=== PATIENT | male | born 1935 | race Caucasian/White ===

== ENCOUNTER → 2018-02-18 13:33 | Outpatient (CLI) | payer OTHER, SELFPAY ==
[2018-02-18 14:17] LABS: Hematocrit 45.7 % (41-53); Hemoglobin 15.2 g/dL (13.5-17.5); Mean Corpuscular HGB Conc 33.1 % (30-36); Mean Corpuscular Hemoglobin 31.3 PG (26-34); Mean Corpuscular Volume 94.6 fL (80-100); Platelet Count 217 X10^3/uL (150-400); Red Blood Cell Count 4.84 X10^6/uL (4.5-5.9); Red Cell Distribution Width 14.8 % (11.6-14.8); White Blood Cell Count 6.2 X10^3/uL (4.5-11.0)
[2018-02-18 14:52] LABS: Alanine Aminotransferase 29 IU/L (21-72); Albumin 4.1 g/dL (3.5-5.0); Albumin Globulin Ratio 1.4 (1.0-2.8); Alkaline Phosphatase 61 U/L (38-126); Aspartate Aminotransferase 28 IU/L (17-59); BUN Creatinine Ratio 14.5 (6-22); Bilirubin Total 0.5 mg/dL (0.2-1.3); Blood Urea Nitrogen 16 mg/dL (9-20); Carbon Dioxide 33 mmol/L (22-32); Chloride 99 mmol/L (98-107); Estimated Glomerular Filt Rate > 60.0 mL/min (>60); Globulin 2.9 g/dL (1.7-4.1); Glucose 93 mg/dL (80-110); HEMOLYSIS < 15 (0-50); Potassium 3.4 mmol/L (3.4-5.1); Sodium 144 mmol/L (137-145)
[2018-02-18 14:56] LABS: Hemoglobin A1C% w Est Avg Glu 6.1 % (4.0-6.0)
[2018-02-18 15:22] LABS: Prostate Specific Antigen Scrn 6.88 ng/mL (0.1-4.0)
[2018-02-18 18:20] LABS: Vitamin D 25 Hydroxy (D3) 19.8 ng/mL (30.0-100.0)
== END ==
PROVIDERS: PCP Student in an Organized Health Care Education/Training Program; Visit Provider Student in an Organized Health Care Education/Training Program
DX: Z00.00 Encounter for general adult medical examination without abnormal findings (principal); R97.20 Elevated prostate specific antigen [PSA]; E66.9 Obesity, unspecified
CPT/HCPCS: 36415; 80053; 82306; 83036; 85027; G0103

== ENCOUNTER → 2018-12-14 14:33 | Outpatient (CLI) | payer MEDICARE, SELFPAY ==
[2018-12-14 16:52] LABS: Vitamin D 25 Hydroxy (D3) 31.2 ng/mL (30.0-100.0)
== END ==
PROVIDERS: PCP Student in an Organized Health Care Education/Training Program; Visit Provider Student in an Organized Health Care Education/Training Program
DX: E55.9 Vitamin D deficiency, unspecified (principal); R97.20 Elevated prostate specific antigen [PSA]
CPT/HCPCS: 36415; 82306; 84153

== ENCOUNTER → 2019-02-23 13:22 | Outpatient (CLI) | payer MEDICARE, SELFPAY ==
[2019-02-23 13:53] LABS: Hemoglobin 14.9 g/dL (13.5-17.5); Mean Corpuscular Hemoglobin 31.7 PG (26-34); Mean Corpuscular Volume 95.9 fL (80-100); Platelet Count 216 X10^3/uL (150-400); Red Blood Cell Count 4.69 X10^6/uL (4.5-5.9); Red Cell Distribution Width 15.1 % (11.6-14.8); White Blood Cell Count 6.9 X10^3/uL (4.5-11.0)
[2019-02-23 13:58] LABS: Hemoglobin A1C% w Est Avg Glu 5.6 % (4.0-6.0)
[2019-02-23 14:11] LABS: Blood Urea Nitrogen 18 mg/dL (9-20); Calcium 9.6 mg/dL (8.4-10.2); Carbon Dioxide 28 mmol/L (22-32); Chloride 101 mmol/L (98-107); Estimated Glomerular Filt Rate > 60.0 mL/min (>60); Glucose 122 mg/dL (80-110); HEMOLYSIS < 15 (0-50); Potassium 3.9 mmol/L (3.4-5.1); Sodium 138 mmol/L (137-145)
== END ==
PROVIDERS: PCP Student in an Organized Health Care Education/Training Program; Visit Provider Student in an Organized Health Care Education/Training Program
DX: I10 Essential (primary) hypertension (principal); R97.20 Elevated prostate specific antigen [PSA]; Z79.899 Other long term (current) drug therapy; E11.9 Type 2 diabetes mellitus without complications
CPT/HCPCS: 36415; 80048; 83036; 85027

== ENCOUNTER → 2020-03-30 13:48 | Outpatient (CLI) | payer MEDICARE, SELFPAY ==
[2020-03-30 14:42] LABS: BUN Creatinine Ratio 17.9 (6-22); Blood Urea Nitrogen 22 mg/dL (9-20); Calcium 8.8 mg/dL (8.4-10.2); Carbon Dioxide 31 mmol/L (22-32); Chloride 103 mmol/L (98-107); Estimated Glomerular Filt Rate 56.2 mL/min (>60); Glucose 129 mg/dL (80-110); HEMOLYSIS < 15 (0-50); Sodium 138 mmol/L (137-145)
[2020-03-30 14:51] LABS: Hemoglobin A1C% w Est Avg Glu 6.5 % (4.0-6.0)
[2020-03-30 15:12] LABS: Prostate Specific Antigen 7.74 ng/mL (0.10-4.00)
== END ==
PROVIDERS: PCP Student in an Organized Health Care Education/Training Program; Referring Provider Student in an Organized Health Care Education/Training Program; Visit Provider Student in an Organized Health Care Education/Training Program
DX: R97.20 Elevated prostate specific antigen [PSA] (principal); R73.9 Hyperglycemia, unspecified; I10 Essential (primary) hypertension; Z79.899 Other long term (current) drug therapy
CPT/HCPCS: 36415; 80048; 83036; 84153

== ENCOUNTER → 2020-04-06 15:00 | Outpatient (CLI) | payer MEDICARE, SELFPAY ==
[2020-04-06 16:15] LABS: Creatinine Urine Random 92.4 mg/dL
[2020-04-06 16:20] LABS: Microalbumin Urine Random < 0.6 mg/dL (0-1.6)
== END ==
PROVIDERS: PCP Student in an Organized Health Care Education/Training Program; Referring Provider Student in an Organized Health Care Education/Training Program; Visit Provider Student in an Organized Health Care Education/Training Program
DX: E11.9 Type 2 diabetes mellitus without complications (principal)
CPT/HCPCS: 82043; 82570

== ENCOUNTER → 2020-09-19 14:13 | Outpatient (CLI) | payer MEDICARE, SELFPAY ==
[2020-09-19 15:22] LABS: INR 2.4 (0.9-1.3); Prothrombin Time 28.2 SECONDS (10.1-12.7)
[2020-09-19 15:25] LABS: Hemoglobin A1C% w Est Avg Glu 6.2 % (4.0-6.0)
[2020-09-19 16:09] LABS: Prostate Specific Antigen 7.28 ng/mL (0.10-4.00)
== END ==
PROVIDERS: PCP Student in an Organized Health Care Education/Training Program; Referring Provider Student in an Organized Health Care Education/Training Program; Visit Provider Student in an Organized Health Care Education/Training Program
DX: I48.0 Paroxysmal atrial fibrillation (principal); E11.9 Type 2 diabetes mellitus without complications; R97.20 Elevated prostate specific antigen [PSA]; Z79.01 Long term (current) use of anticoagulants
CPT/HCPCS: 36415; 83036; 84153; 85610

== ENCOUNTER → 2020-12-16 17:01 | Outpatient (CLI) | payer MEDICARE, SELFPAY ==
[2020-12-16 17:38] LABS: COVID19 -Nasal RAPID Negative (Negative)
== END ==
PROVIDERS: PCP Student in an Organized Health Care Education/Training Program; Visit Provider Student in an Organized Health Care Education/Training Program
DX: Z20.822 Contact with and (suspected) exposure to COVID-19 (principal); Z01.812 Encounter for preprocedural laboratory examination
CPT/HCPCS: 87635

== ENCOUNTER → 2020-12-18 09:04 | Outpatient (CLI) | payer MEDICARE, SELFPAY ==
--- NOTE | 2020-12-18 | DI.NM.S_ITS ---
PROCEDURE: NM BRANDON PERF SPECT R&S PHARM Rest and pharmacological stress myocardial perfusion SPECT with gated imaging and ejection fraction RADIOPHARMACEUTICAL: 14.4 mCi Tc-99m tetrafosmin IV at rest and 25.2 mCi Tc-99m tetrafosmin IV at peak effect of pharmacological stress. [id number] was performed. INDICATIONS: Unspecified atrial flutter TECHNIQUE: Radiopharmaceutical was injected at peak stress test, and also at rest. SPECT images were obtained. SPECT myocardial perfusion images were displayed in short axis, horizontal long axis, and vertical long axis views. Gated images were reviewed using [employer] software. COMPARISON: None. CARDIAC STRESS: A pharmacologic stress test was performed under the supervision of an attending staff, using an infusion of lexiscan 0.4mg IV X1. Hemodynamic data: There is normal blood pressure and heart rate response to pharmacologic stress. Symptoms: The patient denied anginal chest pain. Aminophylline: none EKG: Resting ECG shows sinus rhythm with ventricular pacing. ECG non-diagnostic with lexiscan due to baseline ventricular pacing. FINDINGS: Raw data: There is good myocardial uptake of radiotracer. No significant motion artifacts. Savn-ev-isqgy ratio is 0.32 (normal is less than 0.38 for tetrafosmin tracer). Left ventricle function: Gated images demonstrate normal left ventricular wall thickening. No segmental wall motion abnormalities. No transient ischemic dilation; TID is 1.05 (normal less than 1.3). Left ventricle resting end diastolic volume is 115 mL. Left ventricle stress ejection fraction is 72%; normal range is above 45%. Myocardial perfusion: There is a predominantly fixed inferior wall defect that improves significantly with prone imaging, suggesting artifact but old non-transmural infarction can't be definitively excluded. IMPRESSION: Low risk, probably normal pharmaceutical nuclear stress test 1) No perfusion evidence of ischemia. There is a predominantly fixed inferior wall defect that improves significantly with prone imaging, suggesting artifact but old non-transmural infarction can't be definitively excluded. 2) Normal left ventricular size, wall motion, and systolic function (EF post stress 72%). 3) ECG non-diagnostic due to ventricular pacing. 4) No angina during the study. 5) No prior nuclear stress test available for comparison. Dictated by: Yuliya Tong MD on 12/18/2020 at 16:37 Approved by: Yuliya Tong MD on 12/18/2020 at 16:41
--- NOTE | 2020-12-18 | DI.ECHO.S_ITS ---
[facility] +---------+ : : [address] [place] : : : : [id number] : : : : Phone: [phone] Echocardiogram Report + + :Name: FITO LAN Study Date: 12/18/2020 Height: 70 in : :[facility] : Weight: 215 lb : : Gender: Male BSA: 2.2 m2 : :: 1935 Age: 85 yrs BP: 155/72 mmHg: :Reason For Study: Arrhythmia : :Ordering Physician: Refugio : :Francesco De Luna Performed By: Carlton Maxwell : :Referring: REFUGIO DE LUNA : + + Interpretation Summary The patient has a paced rhythm. Previously sinus. The left ventricle is normal in size. There is mild-moderate concentric left ventricular hypertrophy. Worsening LV thickness from the previous study. The ejection fraction is estimated to be 45-50%. Compared to the prior exam, the left ventricular function is reduced. There is apical hypokinesis. Compared to the prior exam, the apical wall motion abnormality has increased in severity. MV E/A: 0.74 Med Peak E' Osmin: 6.6 cm/sec E/E' med: 9.4 The right ventricle is normal in size and function. There is a pacemaker lead in the right ventricle. In comparison to previous study, pacemaker lead is new. No significant valvular pathology seen. Mild atherosclerotic plaque(s) in the aortic arch. The IVC is of normal diameter and collapses greater than 50% with a sniff. This suggests a low right atrial pressure of 3 mm Hg. Procedure: A two-dimensional transthoracic echocardiogram with color flow and Doppler was performed. The study quality was technically adequate. Comparison is made with the echocardiogram of 03/25/2014. The patient has a paced rhythm. Left Ventricle: The left ventricle is normal in size. There is mild-moderate concentric left ventricular hypertrophy. There is no thrombus. The ejection fraction is estimated to be 45-50%. Compared to the prior exam, the left ventricular function is reduced. There is apical hypokinesis. Compared to the prior exam, the apical wall motion abnormality has increased in severity. MV E/A: 0.74 Med Peak E' Osmin: 6.6 cm/sec E/E' med: 9.4. Right Ventricle: The right ventricle is normal in size and function. There is a pacemaker lead in the right ventricle. Atria: Both atria are normal in size. The left atrium has mildly decreased in size since the prior echo exam. There is no Doppler evidence for an interatrial shunt. Mitral Valve: The mitral valve is normal in structure and function. There is trace mitral regurgitation. Aortic Valve: The aortic valve is normal in structure and function. The aortic valve is trileaflet. There is no aortic valve stenosis. There is trace aortic regurgitation. Tricuspid Valve: The tricuspid valve is normal in structure and function. Pulmonary artery pressures cannot be estimated because of the lack of a measurable TR jet velocity but the IVC suggests a CVP of around 3 mmHg. There is trace tricuspid regurgitation. Pulmonic Valve: The pulmonic valve is normal in structure and function. There is a trace or physiologic amount of pulmonic regurgitation. Great Vessels: The aortic root is normal size. The dimensions of the ascending aorta are normal. Mild atherosclerotic plaque(s) in the aortic arch. The IVC is of normal diameter and collapses greater than 50% with a sniff. This suggests a low right atrial pressure of 3 mm Hg. Pericardium/ Pleura There is a trivial pericardial effusion noted. There are no echocardiographic indications of cardiac tamponade. There is no pleural effusion. MMode/2D Measurements & Calculations LVIDd: 4.1 cm LVOT diam: 2.2 cm LVIDs: 3.0 cm Ao root diam: 3.3 cm FS: 26.8 % asc Aorta Diam: 3.4 cm IVSd: 1.4 cm LVPWd: 1.3 cm LV batres. diameter/BSA (cm/m^2): 1.9 LV sys. diameter/BSA (cm/m^2): 1.4 LA dimension: 3.6 cm RA long axis: 5.7 cm LA A2 area: 13.1 cm2 LA A4 area: 15.8 cm2 LA length (vol): 4.7 cm LA vol: 37.7 ml LA vol index: 17.5 ml/m2 LVLs ap4: 7.9 cm LVLd ap2: 7.7 cm LVLs ap2: 7.2 cm TAPSE_phl: 2.2 cm Doppler Measurements & Calculations Ao V2 max: 106.0 cm/sec LVOT Max Osmin: 80.3 cm/sec Ao V2 mean: 83.5 cm/sec LV V1 max P.6 mmHg Ao max P.0 mmHg LV V1 VTI: 18.6 cm Ao mean P.0 mmHg MIREYA(I,D): 2.6 cm2 Ao V2 VTI: 27.2 cm MIREYA(V,D): 2.9 cm2 sev ratio: 0.68 MIREYA indexed to BSA (cm^2/m^2): 1.2 MV E max osmin: 61.7 cm/sec PA V2 max: 112.0 cm/sec MV A max osmin: 83.1 cm/sec PA V2 mean: 78.8 cm/sec MV E/A: 0.74 PA mean P.0 mmHg Med Peak E' Osmin: 6.6 cm/sec PA pr(Accel): 36.2 mmHg E/E' med: 9.4 Lat Peak E' Osmin: 7.5 cm/sec E/E' lat: 8.3 E/e' average: 8.8 MV dec time: 0.33 sec SV(LVOT): 70.7 ml AV VR_phl: 0.76 MIREYA(VTI)/BSA_phl: 1.2 MV P1/2t-pr_phl: 96.0 msec Reading Physician:12:43 PM
== END ==
PROVIDERS: PCP Student in an Organized Health Care Education/Training Program; Referring Provider Internal Medicine Cardiovascular Disease; Visit Provider Internal Medicine Cardiovascular Disease
DX: I48.92 Unspecified atrial flutter (principal); I49.9 Cardiac arrhythmia, unspecified; I70.0 Atherosclerosis of aorta; Z95.0 Presence of cardiac pacemaker
CPT/HCPCS: 78452; 93017; 93306; A9502; J2785

== ENCOUNTER → 2020-12-21 08:36 | Outpatient (CLI) | payer MEDICARE, SELFPAY ==
[2020-12-21 10:03] LABS: Add Manual Diff / Slide Review NO; Basophils Absolute Auto 0 /uL (0-100); Basophils Percent Auto 0.9 % (0-2); Eosinophils Absolute Auto 200 /uL (0-450); Eosinophils Percent Auto 3.8 % (2-4); Hematocrit 43.9 % (41-53); Hemoglobin 14.6 g/dL (13.5-17.5); Lymphocytes Absolute Auto 1700 /uL (1100-4500); Lymphocytes Percent Auto 32.5 % (25-40); Mean Corpuscular HGB Conc 33.3 % (30-36); Mean Corpuscular Hemoglobin 31.7 PG (26-34); Mean Corpuscular Volume 95.4 fL (80-100); Monocytes Absolute Auto 600 /uL (0-900); Monocytes Percent Auto 11.1 % (3-14); Neutrophils Absolute Auto 2800 /uL (1500-7000); Neutrophils Percent Auto 51.7 % (50-75); Platelet Count 222 X10^3/uL (150-400); Red Cell Distribution Width 15.1 % (11.6-14.8); White Blood Cell Count 5.3 X10^3/uL (4.5-11.0)
[2020-12-21 10:42] LABS: BUN Creatinine Ratio 19.7 (6-22); Blood Urea Nitrogen 25 mg/dL (9-20); Calcium 9.1 mg/dL (8.4-10.2); Carbon Dioxide 25 mmol/L (22-32); Chloride 104 mmol/L (98-107); Cholesterol 160 mg/dL (140-199); Glucose 111 mg/dL (80-110); HDL Cholesterol 42 mg/dL (40-60); HEMOLYSIS < 15 (0-50); LDL Cholesterol Calculated 87 mg/dL (<100); Potassium 3.6 mmol/L (3.4-5.1); Sodium 138 mmol/L (137-145); Triglycerides 155 mg/dL (35-150)
== END ==
PROVIDERS: PCP Student in an Organized Health Care Education/Training Program; Referring Provider Internal Medicine Interventional Cardiology; Visit Provider Internal Medicine Interventional Cardiology
DX: E78.5 Hyperlipidemia, unspecified (principal); I65.23 Occlusion and stenosis of bilateral carotid arteries; I48.92 Unspecified atrial flutter
CPT/HCPCS: 36415; 80048; 80061; 85025

== ENCOUNTER → 2021-05-01 14:54 | Outpatient (CLI) | payer MEDICARE, SELFPAY ==
[2021-05-01 16:14] LABS: BUN Creatinine Ratio 27.5 (6-22); Blood Urea Nitrogen 28 mg/dL (9-20); Carbon Dioxide 28 mmol/L (22-32); Chloride 103 mmol/L (98-107); Estimated Glomerular Filt Rate > 60.0 mL/min (>60); Glucose 104 mg/dL (80-110); Magnesium 1.9 mg/dL (1.6-2.3); Sodium 139 mmol/L (137-145)
[2021-05-01 16:19] LABS: HEMOLYSIS 92 (0-50); Potassium 4.3 mmol/L (3.4-5.1)
== END ==
PROVIDERS: PCP Student in an Organized Health Care Education/Training Program; Referring Provider Student in an Organized Health Care Education/Training Program; Visit Provider Student in an Organized Health Care Education/Training Program
DX: E11.9 Type 2 diabetes mellitus without complications (principal); R25.2 Cramp and spasm
CPT/HCPCS: 36415; 80048; 83036; 83735

== ENCOUNTER → 2021-05-10 11:55 | Outpatient (CLI) | payer MEDICARE, SELFPAY ==
[2021-05-10 13:29] LABS: INR 2.1 (0.9-1.3); Prothrombin Time 24.2 SECONDS (10.1-12.7)
== END ==
PROVIDERS: PCP Student in an Organized Health Care Education/Training Program; Referring Provider Student in an Organized Health Care Education/Training Program; Visit Provider Student in an Organized Health Care Education/Training Program
DX: Z79.01 Long term (current) use of anticoagulants (principal)
CPT/HCPCS: 36415; 85610

== ENCOUNTER → 2021-11-07 11:49 | Outpatient (CLI) | payer MEDICARE, SELFPAY ==
[2021-11-07 13:25] LABS: BUN Creatinine Ratio 15.4 (6-22); Blood Urea Nitrogen 14 mg/dL (9-20); Calcium 8.3 mg/dL (8.4-10.2); Carbon Dioxide 25 mmol/L (22-32); Chloride 106 mmol/L (98-107); Estimated Glomerular Filt Rate > 60 mL/min (>60); Glucose 105 mg/dL (80-110); HEMOLYSIS < 15 (0-50); Potassium 4.1 mmol/L (3.4-5.1); Sodium 139 mmol/L (137-145)
[2021-11-07 13:41] LABS: Hemoglobin A1C% w Est Avg Glu 6.2 % (4.0-6.0)
[2021-11-07 16:19] LABS: Creatinine Urine Random 54.3 mg/dL
[2021-11-07 16:25] LABS: Microalbumin Urine Random 0.6 mg/dL (0-1.6)
== END ==
PROVIDERS: PCP Student in an Organized Health Care Education/Training Program; Referring Provider Student in an Organized Health Care Education/Training Program; Visit Provider Student in an Organized Health Care Education/Training Program
DX: E11.9 Type 2 diabetes mellitus without complications (principal)
CPT/HCPCS: 36415; 80048; 82043; 82570; 83036

== ENCOUNTER → 2022-02-22 16:07 | Outpatient (CLI) | payer MEDICARE, SELFPAY ==
[2022-02-22 17:02] LABS: Cholesterol 144 mg/dL (140-199); HDL Cholesterol 42 mg/dL (40-60); LDL Cholesterol Calculated 75 mg/dL (<100); Triglycerides 135 mg/dL (35-150)
== END ==
PROVIDERS: PCP Student in an Organized Health Care Education/Training Program; Referring Provider Internal Medicine Interventional Cardiology; Visit Provider Internal Medicine Interventional Cardiology
DX: E78.5 Hyperlipidemia, unspecified (principal)
CPT/HCPCS: 36415; 80061

== ENCOUNTER → 2022-04-22 11:27 | Outpatient (CLI) | payer MEDICARE, SELFPAY ==
[2022-04-22 13:36] LABS: BUN Creatinine Ratio 14.8 (6-22); Blood Urea Nitrogen 16 mg/dL (9-20); Estimated Glomerular Filt Rate > 60 mL/min (>60); Uric Acid 4.7 mg/dL (3.5-8.5)
[2022-04-22 19:55] LABS: Hep C Virus Ab w/Reflex Quant NEGATIVE s/c (NEGATIVE)
[2022-04-23 17:57] LABS: Hemoglobin A1C% w Est Avg Glu 6.3 % (4.0-6.0)
== END ==
PROVIDERS: PCP Student in an Organized Health Care Education/Training Program; Referring Provider Student in an Organized Health Care Education/Training Program; Visit Provider Student in an Organized Health Care Education/Training Program
DX: E11.9 Type 2 diabetes mellitus without complications (principal); M10.9 Gout, unspecified; R09.89 Other specified symptoms and signs involving the circulatory and respiratory systems; Z11.59 Encounter for screening for other viral diseases
CPT/HCPCS: 36415; 82565; 83036; 84520; 84550; 86803

== ENCOUNTER → 2022-09-20 10:43 | Outpatient (CLI) | payer MEDICARE, SELFPAY ==
[2022-09-20 12:44] LABS: INR 4.6 (0.9-1.3); Prothrombin Time 53.3 SECONDS (10.1-12.7)
== END ==
PROVIDERS: Internal Medicine; PCP Student in an Organized Health Care Education/Training Program; Referring Provider Student in an Organized Health Care Education/Training Program; Visit Provider Student in an Organized Health Care Education/Training Program
DX: I82.409 Acute embolism and thrombosis of unspecified deep veins of unspecified lower extremity (principal)
CPT/HCPCS: 36415; 85610

== ENCOUNTER → 2022-11-04 13:51 | Outpatient (CLI) | payer MEDICARE, SELFPAY ==
[2022-11-04 16:53] LABS: BUN Creatinine Ratio 14.9 (6-22); Blood Urea Nitrogen 18 mg/dL (9-20); Calcium 8.8 mg/dL (8.4-10.2); Carbon Dioxide 31 mmol/L (22-32); Chloride 101 mmol/L (98-107); Estimated Glomerular Filt Rate 58 mL/min (>60); Glucose 89 mg/dL (80-110); HEMOLYSIS < 15 (0-50); Potassium 3.9 mmol/L (3.4-5.1); Sodium 138 mmol/L (137-145)
[2022-11-04 18:15] LABS: Creatinine Urine Random 76.3 mg/dL; Microalbumi Creatinin Ratio Ur 13.1 ug/mg CR (<30)
[2022-11-05 05:12] LABS: Labcorp Hemoglobin (Hb) A1c 5.7 % (4.8-5.6)
== END ==
PROVIDERS: PCP Student in an Organized Health Care Education/Training Program; Referring Provider Student in an Organized Health Care Education/Training Program; Visit Provider Student in an Organized Health Care Education/Training Program
DX: E11.9 Type 2 diabetes mellitus without complications (principal); R09.89 Other specified symptoms and signs involving the circulatory and respiratory systems
CPT/HCPCS: 36415; 80048; 82043; 82570; 83036

== ENCOUNTER → 2023-03-04 08:29 | Outpatient (CLI) | payer MEDICARE, SELFPAY ==
[2023-03-04 10:27] LABS: BUN Creatinine Ratio 16.8 (6-22); Blood Urea Nitrogen 18 mg/dL (9-20); Calcium 9.5 mg/dL (8.4-10.2); Carbon Dioxide 31 mmol/L (22-32); Chloride 103 mmol/L (98-107); Cholesterol 148 mg/dL (140-199); Estimated Glomerular Filt Rate > 60 mL/min (>60); Glucose 108 mg/dL (80-110); HDL Cholesterol 43 mg/dL (40-60); HEMOLYSIS < 15 (0-50); LDL Cholesterol Calculated 79 mg/dL (<100); Potassium 3.7 mmol/L (3.4-5.1); Sodium 138 mmol/L (137-145); Triglycerides 129 mg/dL (35-150)
== END ==
PROVIDERS: PCP Student in an Organized Health Care Education/Training Program; Referring Provider Internal Medicine Interventional Cardiology; Visit Provider Internal Medicine Interventional Cardiology
DX: E78.5 Hyperlipidemia, unspecified (principal); I77.1 Stricture of artery
CPT/HCPCS: 36415; 80048; 80061

== ENCOUNTER → 2023-09-02 11:53 | Outpatient (CLI) | payer MEDICARE, SELFPAY ==
[2023-09-02 13:51] LABS: Add Manual Diff / Slide Review NO; Basophils Absolute Auto 100 /uL (0-100); Basophils Percent Auto 1.1 % (0-2); Eosinophils Absolute Auto 200 /uL (0-450); Eosinophils Percent Auto 3.8 % (2-4); Hematocrit 44.2 % (41-53); Hemoglobin 14.8 g/dL (13.5-17.5); Lymphocytes Absolute Auto 1000 /uL (1100-4500); Lymphocytes Percent Auto 15.6 % (25-40); Mean Corpuscular HGB Conc 33.4 % (30-36); Mean Corpuscular Hemoglobin 31.6 PG (26-34); Mean Corpuscular Volume 94.6 fL (80-100); Monocytes Absolute Auto 600 /uL (0-900); Monocytes Percent Auto 9.3 % (3-14); Neutrophils Absolute Auto 4400 /uL (1500-7000); Neutrophils Percent Auto 70.2 % (50-75); Platelet Count 194 X10^3/uL (150-400); Red Blood Cell Count 4.67 X10^6/uL (4.5-5.9); Red Cell Distribution Width 15.7 % (11.6-14.8); White Blood Cell Count 6.3 X10^3/uL (4.5-11.0)
[2023-09-02 14:18] LABS: Alanine Aminotransferase 19 IU/L (<50); Albumin 3.8 g/dL (3.5-5.0); Albumin Globulin Ratio 1.6 (1.0-2.8); Alkaline Phosphatase 72 U/L (38-126); Aspartate Aminotransferase 29 IU/L (17-59); BUN Creatinine Ratio 15.3 (6-22); Bilirubin Total 0.8 mg/dL (0.2-1.3); Blood Urea Nitrogen 19 mg/dL (9-20); Calcium 9.1 mg/dL (8.4-10.2); Carbon Dioxide 28 mmol/L (22-32); Chloride 107 mmol/L (98-107); Estimated Glomerular Filt Rate 56 mL/min (>60); Globulin 2.4 g/dL (1.7-4.1); Glucose 102 mg/dL (80-110); HEMOLYSIS < 15 (0-50); Potassium 4.6 mmol/L (3.4-5.1); Sodium 139 mmol/L (137-145); Total Protein 6.2 g/dL (6.3-8.2); Uric Acid 4.9 mg/dL (3.5-8.5)
[2023-09-02 14:23] LABS: Hemoglobin A1C% w Est Avg Glu 6.1 % (4.0-6.0)
[2023-09-02 14:45] LABS: Prostate Specific Antigen Scrn 9.35 ng/mL (0.1-4.0)
== END ==
PROVIDERS: PCP Family Medicine; Referring Provider Family Medicine; Visit Provider Family Medicine
DX: Z12.5 Encounter for screening for malignant neoplasm of prostate (principal); I48.91 Unspecified atrial fibrillation; E11.9 Type 2 diabetes mellitus without complications; M10.9 Gout, unspecified
CPT/HCPCS: 36415; 80053; 83036; 84550; 85025; G0103

== ENCOUNTER → 2023-09-04 12:58 | Outpatient (CLI) | payer MEDICARE, SELFPAY ==
[2023-09-06 07:36] LABS: PSA Free % 18.1 % (.); PSA, Total 8.9 ng/mL (0.0-4.0)
== END ==
PROVIDERS: PCP Family Medicine; Referring Provider Family Medicine; Visit Provider Family Medicine
DX: Z85.46 Personal history of malignant neoplasm of prostate (principal)
CPT/HCPCS: 36415; 84153; 84154

== ENCOUNTER → 2023-11-28 14:13 | Outpatient (CLI) | payer MEDICARE, SELFPAY ==
[2023-11-28 15:13] LABS: Add Manual Diff / Slide Review NO; Basophils Absolute Auto 100 /uL (0-100); Eosinophils Absolute Auto 200 /uL (0-450); Eosinophils Percent Auto 3.3 % (2-4); Hematocrit 44.6 % (41-53); Hemoglobin 14.9 g/dL (13.5-17.5); Lymphocytes Absolute Auto 1200 /uL (1100-4500); Lymphocytes Percent Auto 18.4 % (25-40); Mean Corpuscular HGB Conc 33.4 % (30-36); Mean Corpuscular Hemoglobin 31.4 PG (26-34); Mean Corpuscular Volume 93.8 fL (80-100); Monocytes Absolute Auto 500 /uL (0-900); Monocytes Percent Auto 8.2 % (3-14); Neutrophils Absolute Auto 4400 /uL (1500-7000); Neutrophils Percent Auto 69.1 % (50-75); Platelet Count 214 X10^3/uL (150-400); Red Blood Cell Count 4.75 X10^6/uL (4.5-5.9); Red Cell Distribution Width 15.4 % (11.6-14.8); White Blood Cell Count 6.4 X10^3/uL (4.5-11.0)
[2023-11-28 15:49] LABS: Alanine Aminotransferase 17 IU/L (<50); Albumin 3.9 g/dL (3.5-5.0); Albumin Globulin Ratio 1.6 (1.0-2.8); Alkaline Phosphatase 66 U/L (38-126); Aspartate Aminotransferase 26 IU/L (17-59); BUN Creatinine Ratio 20.6 (6-22); Bilirubin Total 0.6 mg/dL (0.2-1.3); Blood Urea Nitrogen 22 mg/dL (9-20); Carbon Dioxide 28 mmol/L (22-32); Chloride 106 mmol/L (98-107); Estimated Glomerular Filt Rate > 60 mL/min (>60); Globulin 2.5 g/dL (1.7-4.1); Glucose 102 mg/dL (80-110); HEMOLYSIS < 15 (0-50); Potassium 4.6 mmol/L (3.4-5.1); Sodium 139 mmol/L (137-145); Total Protein 6.4 g/dL (6.3-8.2)
[2023-11-28 15:50] LABS: Hemoglobin A1C% w Est Avg Glu 6.1 % (4.0-6.0)
== END ==
PROVIDERS: PCP Family Medicine; Referring Provider Family Medicine; Visit Provider Family Medicine
DX: E11.9 Type 2 diabetes mellitus without complications (principal); Z85.46 Personal history of malignant neoplasm of prostate; I48.91 Unspecified atrial fibrillation
CPT/HCPCS: 36415; 80053; 83036; 84153; 84154; 85025

== ENCOUNTER → 2023-12-05 09:16 | Outpatient (CLI) | payer MEDICARE, SELFPAY ==
--- NOTE | 2023-12-05 09:16 | DI.ECHO.S_ITS ---
[place] +---------+ Hospital : : [address] : : [place] : : [id number] : : Phone: [phone] Echocardiogram Report + + :Name: FITO LAN Study Date: 12/05/2023 Height: 70.5 in: :[facility] ReadingLocation: Weight: 200 lb : : Gender: Male BSA: 2.1 m2 : :: 1935 Age: 88 yrs BP: 149/79 mmHg: :Reason For Study: EVAL HEART MURMUR : :Ordering Physician: [place] : :GOKUL Performed By: Sulema Martinez : :Referring: GOKUL GOFF : + + Interpretation Summary The ejection fraction is estimated to be 50-55%. Diastolic parameters suggest probable normal left ventricular diastolic function and normal filling pressures. There is mild-moderate concentric left ventricular hypertrophy. The right ventricle is normal in size and function. Pulmonary artery pressures cannot be estimated because of the lack of a measurable TR jet velocity. No siginificant valvular abnormality. Procedure: A two-dimensional transthoracic echocardiogram with color flow and Doppler was performed. The study quality was technically adequate. Comparison is made with the echocardiogram of 12/18/2020. The patient has a paced rhythm. The heart rate ranged between 62-70 bpm during the study. Left Ventricle: There is mild-moderate concentric left ventricular hypertrophy. The left ventricle is normal in size. The ejection fraction is estimated to be 50-55%. There is a mild dyssynchronous contraction pattern due to the paced rhythm. Diastolic parameters suggest probable normal left ventricular diastolic function and normal filling pressures. Right Ventricle: There is a pacemaker lead in the right ventricle. The right ventricle is normal in size and function. Atria: The left atrial size is normal. Right atrial size is normal. There is no Doppler evidence for an interatrial shunt. Mitral Valve: The mitral valve is normal in structure and function. There is trace mitral regurgitation. Aortic Valve: The aortic valve is trileaflet. The aortic valve opens well. There is no aortic valve stenosis. No aortic regurgitation is present. Tricuspid Valve: The tricuspid valve is normal in structure and function. There is trace tricuspid regurgitation. Pulmonary artery pressures cannot be estimated because of the lack of a measurable TR jet velocity. Pulmonic Valve: The pulmonic valve leaflets are thin and pliable; valve motion is normal. There is no pulmonic valvular regurgitation. Great Vessels: The aortic root is normal size. The dimensions of the ascending aorta are normal. The IVC is of normal diameter and collapses greater than 50% with a sniff. This suggests a low right atrial pressure of 3 mm Hg. Pericardium/ Pleura There is no pericardial effusion. There is no pleural effusion. MMode/2D Measurements & Calculations LVIDd: 4.8 cm LVOT diam: 2.2 cm LVIDs: 3.0 cm Ao root diam: 3.7 cm FS: 36.8 % asc Aorta Diam: 3.8 cm EPSS: 1.2 cm Ao Arch Diam (Prox Trans): 2.8 cm IVSd: 1.4 cm LVPWd: 1.1 cm LV batres. diameter/BSA (cm/m^2): 2.3 LV sys. diameter/BSA (cm/m^2): 1.4 LA A2 area: 22.8 cm2 RA long axis: 5.3 cm LA A4 area: 18.5 cm2 RA area: 19.3 cm2 LA length (vol): 6.2 cm RA vol: 59.5 ml LA vol: 58.0 ml RA : 28.3 ml/m2 LA vol index: 27.6 ml/m2 IVC diam: 0.66 cm RVD1 (basal): 3.9 cm RVD2 (mid): 3.3 cm TAPSE: 2.3 cm Doppler Measurements & Calculations Ao V2 max: 136.8 cm/sec LVOT Max Osmin: 97.1 cm/sec Ao V2 mean: 102.6 cm/sec LV V1 max P.8 mmHg Ao max P.5 mmHg LV V1 VTI: 22.3 cm Ao mean P.5 mmHg MIREYA(I,D): 2.8 cm2 Ao V2 VTI: 30.5 cm MIREYA(V,D): 2.7 cm2 sev ratio: 0.73 MIREYA indexed to BSA (cm^2/m^2): 1.3 MV E max osmin: 55.4 cm/sec PA V2 max: 120.4 cm/sec MV A max osmin: 68.1 cm/sec PA V2 mean: 79.4 cm/sec MV E/A: 0.81 PA mean P.8 mmHg Med Peak E' Osmin: 6.5 cm/sec PA pr(Accel): 39.6 mmHg E/E' med: 8.5 Lat Peak E' Osmin: 6.9 cm/sec E/E' lat: 8.0 E/e' average: 8.3 MV dec time: 0.29 sec SV(LVOT): 85.0 ml Reading Physician:PM
== END ==
PROVIDERS: PCP Family Medicine; Referring Provider Family Medicine; Visit Provider Family Medicine
DX: R01.1 Cardiac murmur, unspecified (principal); Z95.0 Presence of cardiac pacemaker
CPT/HCPCS: 93306

== ENCOUNTER 2023-12-23 15:38 | Emergency (ER) | payer MEDICARE, SELFPAY ==
[2023-12-23] VITALS (21 sets, daily range): BP systolic 137–206; BP diastolic 72–155; PULSE 71–73; RESP 9–18; TEMP 36.6; O2SAT 95–98; BMI 28.7
--- NOTE | 2023-12-23 15:46 | DI.RAD.S_ITS ---
PROCEDURE: XR CHEST 1V INDICATIONS: chest pain TECHNIQUE: One view of the chest was acquired. COMPARISON: None. FINDINGS: Surgical changes and devices: Left-sided pacer Lungs and pleura: Lungs are clear. No pleural effusions or pneumothorax. Mediastinum: Mediastinal contours appear normal. Heart size is normal. Bones and chest wall: No suspicious bony lesions. Overlying soft tissues appear unremarkable. IMPRESSION: No acute cardiopulmonary abnormality is seen. Dictated by: Samir Marks M.D. on 12/23/2023 at 16:36 Approved by: Samir Marks M.D. on 12/23/2023 at 16:36
--- NOTE | 2023-12-23 15:49 | EKG_ITS ---
[address] [address] Test Date: 2023-12-23 Pat Name: Gerber Wevaer Department: Room: Gender: Male Medical Director Of Hospice: SARAI : 1935 Requested By: Order Number: [id number] Reading MD: Álvaro Johnson MD Measurements Intervals [place] Rate: 73 P: PA: QRS: -42 QRSD: 194 T: 102 QT: 478 QTc: 526 Interpretive Statements Ventricular-paced rhythm NO PRIOR TRACING Electronically Signed On 12-23-2023 16:51:14 PDT by Álvaro Johnson MD
[2023-12-23 16:06] LABS: Add Manual Diff / Slide Review NO; Basophils Absolute Auto 0 /uL (0-100); Basophils Percent Auto 0.8 % (0-2); Eosinophils Absolute Auto 100 /uL (0-450); Eosinophils Percent Auto 1.9 % (2-4); Hematocrit 45.5 % (41-53); Hemoglobin 15.2 g/dL (13.5-17.5); Lymphocytes Absolute Auto 1100 /uL (1100-4500); Lymphocytes Percent Auto 16.9 % (25-40); Mean Corpuscular HGB Conc 33.4 % (30-36); Mean Corpuscular Hemoglobin 31.3 PG (26-34); Mean Corpuscular Volume 93.7 fL (80-100); Monocytes Absolute Auto 500 /uL (0-900); Monocytes Percent Auto 7.5 % (3-14); Neutrophils Absolute Auto 4800 /uL (1500-7000); Neutrophils Percent Auto 72.9 % (50-75); Platelet Count 203 X10^3/uL (150-400); Red Blood Cell Count 4.85 X10^6/uL (4.5-5.9); Red Cell Distribution Width 15.6 % (11.6-14.8); White Blood Cell Count 6.6 X10^3/uL (4.5-11.0)
[2023-12-23 16:17] LABS: Prothrombin Time 34.7 SECONDS (9.4-12.5)
[2023-12-23 16:19] LABS: PTT Partial Thromboplastin Tim 68 SECONDS (25.1-36.5)
[2023-12-23 16:21] LABS: Alanine Aminotransferase 21 IU/L (<50); Albumin 4.2 g/dL (3.5-5.0); Albumin Globulin Ratio 1.4 (1.0-2.8); Alkaline Phosphatase 67 U/L (38-126); Aspartate Aminotransferase 29 IU/L (17-59); BUN Creatinine Ratio 20.8 (6-22); Bilirubin Total 0.5 mg/dL (0.2-1.3); Blood Urea Nitrogen 22 mg/dL (9-20); Calcium 9.3 mg/dL (8.4-10.2); Carbon Dioxide 29 mmol/L (22-32); Chloride 106 mmol/L (98-107); Creatine Kinase 71 U/L (55-170); Estimated Glomerular Filt Rate > 60 mL/min (>60); Globulin 3.1 g/dL (1.7-4.1); Glucose 110 mg/dL (80-110); HEMOLYSIS < 15 (0-50); Lipase 71 U/L (23-300); Magnesium 2.1 mg/dL (1.6-2.3); Potassium 4.1 mmol/L (3.4-5.1); Sodium 138 mmol/L (137-145); Total Protein 7.3 g/dL (6.3-8.2)
[2023-12-23 16:33] LABS: NT-proBNP (BNP-Adult 18+) 358 pg/mL (<450); Troponin I < 0.012 ng/mL (0.01-0.034)
--- NOTE | 2023-12-23 17:05 | EKG_ITS ---
[address] [address] Test Date: 2023-12-23 Pat Name: Gerber Weaver Department: Room: Gender: Male [employer] Help: KAYA : 1935 Requested By: Order Number: [id number] Reading MD: Álvaro Johnson MD Measurements Intervals [place] Rate: 72 P: 62 DC: QRS: -39 QRSD: 194 T: 86 QT: 488 QTc: 534 Interpretive Statements Ventricular-paced rhythm Electronically Signed On 12-23-2023 17:46:17 PDT by Álvaro Johnson MD
--- NOTE | 2023-12-23 17:59 | ED.DIZZY ---
HPI - Dizziness General Chief Complaint: Syncope Stated Complaint: near syncope episodes Time Seen by Provider: 12/23/23 17:54 Source: patient Mode of arrival: Ambulatory History of Present Illness HPI Narrative: 88-year-old male with history of atrial fibrillation, Mobitz type 2 av block with permanent pacemaker placement presents from the walk-in clinic for 1 week of multiple ?blackout? episodes. Patient states that several times a day he feels his vision blackout. He denies truly losing consciousness during these episodes. He went to the walk-in clinic, and was referred to the emergency department for further evaluation. Related Data Home Medications Medication Instructions Recorded Confirmed aspirin 81 mg tablet,delayed 81 mg PO DAILY 03/31/20 12/23/23 release rosuvastatin 20 mg tablet 20 mg PO DAILY 04/17/22 12/23/23 Previous Rx's Medication Instructions Recorded cholecalciferol (vitamin D3) 25 1,000 unit PO DAILY #30 caps 02/19/18 mcg (1,000 unit) capsule diclofenac sodium 1 % topical gel 2 g topical QID #100 grams 10/18/21 (Voltaren Arthritis Pain) azelastine 137 mcg (0.1 %) nasal 2 spray intranasal BID #200 01/22/22 spray aerosol actuations loratadine 10 mg tablet 10 mg PO DAILY PRN allergic 06/25/22 symptoms #30 tabs allopurinol 300 mg tablet 300 mg PO DAILY #90 tabs 08/08/23 warfarin 6 mg tablet See Rx Instructions PO .COMPLEX 09/02/23 #90 tabs lisinopril 10 1 tab PO DAILY #90 tabs 10/24/23 mg-hydrochlorothiazide 12.5 mg tablet ketoconazole 2 % shampoo 1 applic topical 3XW PRN 12/03/23 dermatitis #120 mL Allergies Allergy/AdvReac Type Severity Reaction Status Date / Time No Known Drug Allergies Allergy Verified 12/23/23 15:46 Patient History Medical History Ganglion cyst of dorsum of right wrist 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) History of prostate cancer Paroxysmal atrial fibrillation Mobitz (type) II atrioventricular block Hearing loss Gout Osteoarthritis Subclavian artery stenosis Peripheral vascular disease Prostate cancer (~10/2009) Seborrheic dermatitis of scalp (11/22/16) Hammer toe of right foot (11/22/16) Pure hypercholesterolemia (11/10/15) Presence of cardiac pacemaker (02/13/15) 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 Mother No problems noted. Social History Smoking Status: Never smoker Smoking Status: Never smoker alcohol intake frequency: a few times a month Substance Use Type: does not use Exam Initial Vital Signs Initial Vital Signs: Vital Signs Temperature 97.8 F 12/23/23 15:40 Pulse Rate 72 12/23/23 15:40 Respiratory Rate 16 12/23/23 15:40 Blood Pressure 137/81 12/23/23 15:40 Pulse Oximetry 98 12/23/23 15:40 Oxygen Delivery Method Room Air 12/23/23 15:40 Const: Awake, alert, no acute distress, nontoxic appearing Cardiac: regular rate, regular rhythm RESP: unlabored, clear bilaterally, no wheezing Skin: Warm, Dry, intact, no rashes Neuro: AO x3, CN II-XII grossly intact, moves all extremities Course Orders Ordered: ED Orders 12/23/23 15:46 XR chest 1V Stat EKG-12 Lead Stat 12/23/23 15:55 Complete Blood Count AUTO DIFF Stat Comprehensive Metabolic Panel Stat Lipase Stat Magnesium Stat NT-proBNP (BNP-Adult 18+) Stat PTT Partial Thromboplastin González Stat Prothrombin Time INR Stat Troponin & CK Cardiac Panel Stat 12/23/23 17:05 EKG-12 Lead Stat Vital Signs Vital signs: Vital Signs - 8 hr 12/23/23 15:40 12/23/23 15:43 12/23/23 15:43 Temperature 97.8 F Pulse Rate 72 73 Respiratory Rate 16 Blood Pressure 137/81 137/81 Pulse Oximetry 98 Oxygen Delivery Method Room Air 12/23/23 16:00 12/23/23 16:00 12/23/23 16:30 Temperature Pulse Rate 72 71 Respiratory Rate 13 10 L Blood Pressure 155/85 H Pulse Oximetry 98 95 Oxygen Delivery Method 12/23/23 16:30 12/23/23 17:00 12/23/23 17:00 Temperature Pulse Rate 72 Respiratory Rate 12 Blood Pressure 152/90 H 153/86 H Pulse Oximetry 98 Oxygen Delivery Method 12/23/23 17:30 12/23/23 17:31 12/23/23 17:31 Temperature Pulse Rate 72 72 Respiratory Rate 11 L Blood Pressure 183/94 H Pulse Oximetry 97 97 Oxygen Delivery Method 12/23/23 17:52 12/23/23 17:52 12/23/23 18:00 Temperature Pulse Rate 72 72 Respiratory Rate 13 9 L Blood Pressure 206/103 H Pulse Oximetry 97 98 Oxygen Delivery Method 12/23/23 18:01 12/23/23 18:01 12/23/23 18:30 Temperature Pulse Rate 72 72 Respiratory Rate 12 11 L Blood Pressure 189/110 H Pulse Oximetry 98 98 Oxygen Delivery Method 12/23/23 18:35 12/23/23 18:35 12/23/23 18:37 Temperature Pulse Rate 72 Respiratory Rate 18 Blood Pressure 155/72 H 171/76 H Pulse Oximetry 98 Oxygen Delivery Method 12/23/23 18:37 12/23/23 19:00 12/23/23 19:00 Temperature Pulse Rate 72 72 Respiratory Rate 14 18 Blood Pressure 187/105 H Pulse Oximetry 97 98 Oxygen Delivery Method 12/23/23 19:30 12/23/23 19:30 12/23/23 20:00 Temperature Pulse Rate 72 72 Respiratory Rate 18 9 L Blood Pressure 195/101 H Pulse Oximetry 97 97 Oxygen Delivery Method 12/23/23 20:01 12/23/23 20:01 12/23/23 20:09 Temperature Pulse Rate 72 Respiratory Rate 12 Blood Pressure 176/155 H 206/91 H Pulse Oximetry 97 Oxygen Delivery Method 12/23/23 20:09 Temperature Pulse Rate 72 Respiratory Rate 15 Blood Pressure 206/91 H Pulse Oximetry 97 Oxygen Delivery Method MDM - Dizziness Differential Diagnosis Differential diagnosis: Likely orthostatic hypotension and other (pacemaker malfunction, vasovagal syncope) Lab Data 12/23/23 15:55 12/23/23 15:55 Labs: Lab Results 12/23/23 Range/Units 15:55 WBC 6.6 (4.5-11.0) X10^3/uL RBC 4.85 (4.5-5.9) X10^6/uL Hgb 15.2 (13.5-17.5) g/dL Hct 45.5 (41-53) % MCV 93.7 (80-100) fL MCH 31.3 (26-34) PG MCHC 33.4 (30-36) % RDW 15.6 H (11.6-14.8) % Plt Count 203 (150-400) X10^3/uL Neut % (Auto) 72.9 (50-75) % Lymph % (Auto) 16.9 L (25-40) % Gosper % (Auto) 7.5 (3-14) % Eos % (Auto) 1.9 L (2-4) % Baso % (Auto) 0.8 (0-2) % Neut # (Auto) 4800 (8885-8870) /uL Lymph # (Auto) 1100 (9194-7506) /uL Gosper # (Auto) 500 (0-900) /uL Eos # (Auto) 100 (0-450) /uL Baso # (Auto) 0 (0-100) /uL PT 34.7 H (9.4-12.5) SECONDS INR 3.0 H (0.9-1.3) APTT 68 H (25.1-36.5) SECONDS Sodium 138 (137-145) mmol/L Potassium 4.1 (3.4-5.1) mmol/L Chloride 106 (98-107) mmol/L Carbon Dioxide 29 (22-32) mmol/L BUN 22 H (9-20) mg/dL Creatinine 1.06 (0.66-1.25) mg/dL Estimated GFR > 60 (>60) mL/min BUN/Creatinine Ratio 20.8 (6-22) Glucose 110 (80-110) mg/dL Calcium 9.3 (8.4-10.2) mg/dL Magnesium 2.1 (1.6-2.3) mg/dL Total Bilirubin 0.5 (0.2-1.3) mg/dL AST 29 (17-59) IU/L ALT 21 (<50) IU/L Alkaline Phosphatase 67 (38-126) U/L Total Creatine Kinase 71 (55-170) U/L Troponin I < 0.012 (0.01-0.034) ng/mL NT-Pro-B Natriuret Pep 358 (<450) pg/mL Total Protein 7.3 (6.3-8.2) g/dL Albumin 4.2 (3.5-5.0) g/dL Globulin 3.1 (1.7-4.1) g/dL Albumin/Globulin Ratio 1.4 (1.0-2.8) Lipase 71 (23-300) U/L ECG Data Interpretation: Atrial sensed ventricular paced rhythm at 72 beats per minute MDM Narrative Medical decision making narrative: Patient presenting for multiple ?blackout? episodes. EKG shows ventricular paced rhythm, however it was captured on cardiac monitoring where several beats were atrial sensed but no ventricular paced was fired. Unable to interrogate pacemaker with our machine and so telephone services sales representative from patient's pacemaker company called to interrogate pacer. Discussed case with device telephone services sales representative. Patient's pacemaker is currently in ?safety mode? and in this situation movement from patient's body can interfere with the sensing from the pacemaker device and registered as heartbeat, causing the ventricular sensing of the wire to not activate. Discussed with Dr. Goldman, who recommended transfer for pacemaker replacement. While awaiting transfer to [facility] patient stated that he wanted to leave and go home. He states that he ?is not 1 for sitting around in hospitals? and does not want to be transferred, stating that he will likely just sit in [facility] for several days with nothing happening. I explained that pacemaker replacement would be based on EP lab availability and I could not say when a replacement [place] available to be performed. I explained that risks of leaving against medical advice would be , permanent disability, injury or accident due to syncope or pacemaker malfunction. Patient states that he just wants to leave and will come back if he has any changes in his condition. patient elected to leave hospital against medical advice. Discharge Plan Departure Patient Disposition: Left Against Medical Advice Clinical Impression: Malfunction of cardiac pacemaker, Left against medical advice Activity Restrictions/Additional Instructions: You have elected to leave the hospital against medical advice while awaiting transfer to [facility]. Your pacemaker is not functioning correctly and you risk , permanent disability, injury, or accident by leaving prior to your transfer. Call your riveter portable machine for follow up appointment, or return to the emergency department for any new or worsening concerns. Prescriptions: No Action cholecalciferol (vitamin D3) 1,000 unit capsule 1,000 unit PO DAILY Qty: 30 2RF aspirin 81 mg tablet,delayed release (DR/EC) 81 mg PO DAILY diclofenac sodium [Voltaren Arthritis Pain] 1 % gel 2 g topical QID Qty: 100 0RF Rx Instructions: apply to single elbow, wrist or hand; for hand includes palm/fingers/back of hand azelastine 137 mcg (0.1 %) aerosol,spray 2 spray Intranasal BID Qty: 200 5RF allopurinol 300 mg tablet 300 mg PO DAILY Qty: 90 1RF lisinopril-hydrochlorothiazide 10-12.5 mg tablet 1 tab PO DAILY Qty: 90 0RF ketoconazole 2 % shampoo 1 applic topical 3XW PRN (Reason: dermatitis) Qty: 120 3RF loratadine 10 mg tablet 10 mg PO DAILY PRN (Reason: allergic symptoms) Qty: 30 0RF warfarin 6 mg tablet See Rx Instructions PO .COMPLEX Qty: 90 3RF Rx Instructions: Start taking 6 mg daily - start 6 mg dose on 09/02/23 rosuvastatin 20 mg tablet 20 mg PO DAILY Referrals: Barrington Tolliver, [Primary Care Provider] - Stand Alone Forms: Patient Portal/API, Against Medical Advice
--- NOTE | 2023-12-23 20:17 | PC.NURSE ---
Pt indicates to this tech that he would like to go home instead of wait for placement at [facility]. This Tech informed Pt that we are waiting for the hospital to call us back this evening to be sent over to for a new pacemaker. Pt states he would still like to leave. Tech informed provider. Provider to speak with Pt
== END 2023-12-23 20:38 | disposition left against medical advice (07) ==
PROVIDERS: Emergency Medicine; Emergency Provider Emergency Medicine; PCP Family Medicine
DX: T82.111A Breakdown (mechanical) of cardiac pulse generator (battery), initial encounter (principal); R07.9 Chest pain, unspecified; Z95.0 Presence of cardiac pacemaker
CPT/HCPCS: 36415; 71045; 80053; 82550; 83690; 83735; 83880; 84484; 85025; 85610; 85730; 93005; 93010; 99283; 99284

== ENCOUNTER → 2025-03-04 07:56 | Outpatient (CLI) | payer MEDICARE, SELFPAY ==
[2025-03-04 09:00] LABS: Add Manual Diff / Slide Review NO; Hematocrit 43.0 % (41-53); Hemoglobin 14.4 g/dL (13.5-17.5); Lymphocytes Absolute Auto 1100 /uL (1100-4500); Mean Corpuscular HGB Conc 33.5 % (30-36); Mean Corpuscular Hemoglobin 30.8 PG (26-34); Mean Corpuscular Volume 91.9 fL (80-100); Platelet Count 193 X10^3/uL (150-400)
[2025-03-04 09:06] LABS: Hemoglobin A1C% w Est Avg Glu 6.0 % (4.0-6.0)
[2025-03-04 09:22] LABS: Alanine Aminotransferase 21 IU/L (<50); Albumin 3.7 g/dL (3.5-5.0); Albumin Globulin Ratio 1.5 (1.0-2.8); Alkaline Phosphatase 69 U/L (38-126); Blood Urea Nitrogen 18 mg/dL (9-20); Calcium 8.8 mg/dL (8.4-10.2); Carbon Dioxide 27 mmol/L (22-32); Chloride 103 mmol/L (98-107); Cholesterol 148 mg/dL (140-199); Estimated Glomerular Filt Rate > 60 mL/min (>60); Globulin 2.4 g/dL (1.7-4.1); Glucose 96 mg/dL (70-99); HDL Cholesterol 59 mg/dL (40-60); HEMOLYSIS < 15 (0-50); Potassium 3.6 mmol/L (3.4-5.1); Sodium 138 mmol/L (137-145); Total Protein 6.1 g/dL (6.3-8.2); Triglycerides 107 mg/dL (35-150)
[2025-03-04 09:26] LABS: Microalbumi Creatinin Ratio Ur 20.0 ug/mg CR (<30)
[2025-03-06 08:11] LABS: PSA, Total 11.0 ng/mL (0.0-4.0)
== END ==
PROVIDERS: PCP Family Medicine; Referring Provider Family Medicine; Visit Provider Family Medicine
DX: E11.69 Type 2 diabetes mellitus with other specified complication (principal); Z85.46 Personal history of malignant neoplasm of prostate; Z79.899 Other long term (current) drug therapy; R09.89 Other specified symptoms and signs involving the circulatory and respiratory systems; E66.9 Obesity, unspecified; E78.5 Hyperlipidemia, unspecified
CPT/HCPCS: 36415; 80053; 80061; 82043; 82570; 83036; 84153; 84154; 85025

== ENCOUNTER → 2025-04-05 09:10 | Outpatient (CLI) | payer MEDICARE, SELFPAY ==
--- NOTE | 2025-04-05 09:10 | DI.ECHO.S_ITS ---
[facility] : : [address] : : [place] : : [id number] : : Phone: [phone] Echocardiogram Report + + :Name: FITO LAN Study Date: 04/05/2025 Height: 71 in : :Hospital ReadingLocation: Weight: 200 lb : : Gender: Male BSA: 2.1 m2 : :: 1935 Age: 89 yrs BP: 150/80 mmHg: :Reason For Study: CHF : :Ordering Physician: DEN[place], : :GOKUL Performed By: Rohan Hussein : :Referring: GOKUL GOFF : + + Interpretation Summary 1) Mildly to moderately increased left ventricular thickness (concentric) with normal size and low normal systolic function (EF 50-55%). 2) Normal right ventricular size and function. There is a pacemaker lead in the right ventricle. 3) No significant valvular abnormalities. 4) [facility], no significant change. Procedure: A two-dimensional transthoracic echocardiogram with color flow and Doppler was performed. The study quality was technically adequate. Comparison is made with the echocardiogram of 12/05/2023. The heart rate ranged between 60-75 bpm during the study. Left Ventricle: The left ventricle is normal in size. There is mild-moderate concentric left ventricular hypertrophy. Overall left ventricular systolic function is preserved. The ejection fraction is estimated to be 50-55%. Apical wall motion abnormality may reflect pacemaker activation. Grade I diastolic dysfunction with normal left atrial pressure. Right Ventricle: The right ventricle is normal in size and function. There is a pacemaker lead in the right ventricle. Atria: The left atrial size is normal. Right atrial size is normal. There is no Doppler evidence for an interatrial shunt. Mitral Valve: There is mild mitral annular calcification. The mitral valve leaflets appear to open well. There is no mitral valve stenosis. There is trace mitral regurgitation. Aortic Valve: The aortic valve is trileaflet. The aortic valve opens well. There is no aortic valve stenosis. There is no aortic regurgitation. Tricuspid Valve: The tricuspid valve is not well visualized, but is grossly normal. There is mild tricuspid regurgitation. The right ventricular systolic pressure is estimated to be at least 20 mmHg based on an estimated right atrial pressure of 3 mm Hg. Pulmonic Valve: The pulmonic valve is not well seen, but is grossly normal. There is trace pulmonic regurgitation. Great Vessels: The aortic root is normal size. The ascending aorta is normal in size. The aortic arch could not be visualized. The pulmonary artery is normal size. The IVC is of normal diameter and collapses greater than 50% with a sniff. This suggests a low right atrial pressure of 3 mm Hg. Pericardium/ Pleura There is no pericardial effusion. MMode/2D Measurements & Calculations LVIDd: 3.1 cm LVOT diam: 2.2 cm LVIDs: 2.3 cm Ao root diam: 3.5 cm FS: 28.0 % asc Aorta Diam: 3.7 cm IVSd: 1.4 cm LVPWd: 1.3 cm LV batres. diameter/BSA (cm/m^2): 1.5 LV sys. diameter/BSA (cm/m^2): 1.1 LA A2 area: 17.4 cm2 RA area: 17.5 cm2 LA A4 area: 19.0 cm2 IVC diam: 0.84 cm LA length (vol): 6.2 cm LA vol: 45.2 ml LA vol index: 21.4 ml/m2 RVD1 (basal): 3.3 cm RVD2 (mid): 3.0 cm TAPSE: 1.7 cm Doppler Measurements & Calculations Ao V2 max: 121.3 cm/sec LVOT Max Osmin: 82.0 cm/sec Ao V2 mean: 91.5 cm/sec LV V1 max P.7 mmHg Ao max P.9 mmHg LV V1 VTI: 17.1 cm Ao mean P.7 mmHg MIREYA(I,D): 2.6 cm2 Ao V2 VTI: 25.6 cm MIREYA(V,D): 2.6 cm2 sev ratio: 0.67 MIREYA indexed to BSA (cm^2/m^2): 1.2 MV E max osmin: 38.2 cm/sec TR max osmin: 206.4 cm/sec MV A max osmin: 83.3 cm/sec TR max P.1 mmHg MV E/A: 0.46 PA V2 max: 86.6 cm/sec Med Peak E' Osmin: 4.6 cm/sec PA V2 mean: 63.2 cm/sec E/E' med: 8.3 PA mean P.8 mmHg Lat Peak E' Osmin: 5.9 cm/sec PA pr(Accel): 21.2 mmHg E/E' lat: 6.5 E/e' average: 7.4 MV dec time: 0.25 sec SV(LVOT): 66.5 ml Reading Physician:10:55 AM
== END ==
LOC: ECHO 09:10
PROVIDERS: PCP Family Medicine; Referring Provider Family Medicine; Visit Provider Family Medicine
DX: I08.1 Rheumatic disorders of both mitral and tricuspid valves (principal); R09.89 Other specified symptoms and signs involving the circulatory and respiratory systems; I48.0 Paroxysmal atrial fibrillation; Z95.0 Presence of cardiac pacemaker
CPT/HCPCS: 93306